=== PATIENT | male | born 1985 | race Caucasian/White ===

== ENCOUNTER 2018-08-25 23:52 | Emergency (ER) | payer OTHER ==
[~2018-08-25] VITALS: Ht 177.8 cm; Wt 81.6 kg
[2018-08-25 23:57] VITALS: Ht 177.8 cm; Wt 81.6 kg
[2018-08-26 01:02] VITALS: BP 134/81
== END 2018-08-26 01:02 | disposition home or self-care (01) ==
LOC: ED 23:52
DX: R07.89 Other chest pain (principal); R05 Cough; Z98.890 Other specified postprocedural states